=== PATIENT | female | born 1980 | race Caucasian/White ===

== ENCOUNTER 2018-07-23 23:06 | Emergency (ER) | payer SELFPAY ==
[~2018-07-23] VITALS: Ht 167.6 cm; Wt 59.5 kg
[2018-07-23] MEDS ORDERED: SOD CHLORIDE 0.9% 1,000 ML IV STA (23:10)
[2018-07-23 23:12] VITALS: Ht 167.6 cm; Wt 59.5 kg
--- NOTE | 2018-07-24 00:51 | ERD ---
ER Documentation Chief Complaint Chief Complaint bib ra s/p syncopal episode r/t finger lac [h/o pain induced syncope] HPI This a 29-year-old female brought in by rescue status post syncopal episode. Patient had a finger laceration earlier in the day she said it started hurting and the pain made her vasovagal. Apparently she had multiple episodes of vasovagal syncope in her past and this is a known issue for her. She is also 22 weeks . 5 para 1 with the current . Denies any chest pain nausea vomiting fevers chills or abdominal pain. Denies any other current issues. ROS All systems reviewed and are negative except as per history of present illness. Allergies Allergies: Coded Allergies: No Known Allergy (Unverified , 07/23/18) PMhx/Soc Medical and Surgical Hx: pt denies Medical Hx History of Surgery: Yes (, d/c) Anesthesia Reaction: No Hx Neurological Disorder: No Hx Respiratory Disorders: No Hx Cardiac Disorders: No Hx Psychiatric Problems: No Hx Miscellaneous Medical Probl: No Hx Alcohol Use: No Hx Substance Use: No Hx Tobacco Use: No Smoking Status: Never smoker Physical Exam Vitals Vital Signs Date Temp Pulse Resp B/P (MAP) Pulse Ox O2 O2 Flow FiO2 Time Delivery Rate 07/23/18 99.0 83 18 115/67 100 23:12 (83) Physical Exam Const: No acute distress Head: Atraumatic Eyes: Normal Conjunctiva ENT: Normal External Ears, Nose and Mouth. Neck: Full range of motion. No meningismus. Resp: Clear to auscultation bilaterally Cardio: Regular rate and rhythm, no murmurs Abd: Soft, non tender, non distended. Normal bowel sounds Skin: No petechiae or rashes Back: No midline or flank tenderness Ext: No cyanosis, or edema Neur: Awake and alert Psych: Normal Mood and Affect Result Diagram: 07/23/18 2335 07/23/18 2335 Results 24 hrs Laboratory Tests Test 07/23/18 23:35 White Blood Count 6.8 10^3/ul Red Blood Count 2.68 10^6/ul Hemoglobin 10.1 g/dl Hematocrit 26.9 % Mean Corpuscular Volume 100.4 fl Mean Corpuscular Hemoglobin 37.7 pg Mean Corpuscular Hemoglobin Concent 37.5 g/dl Red Cell Distribution Width 13.3 % Platelet Count 146 10^3/UL Mean Platelet Volume 9.4 fl Immature Granulocytes % 0.300 % Neutrophils % 62.8 % Lymphocytes % 29.6 % Monocytes % 6.0 % Eosinophils % 1.2 % Basophils % 0.1 % Nucleated Red Blood Cells % 0.0 /100WBC Immature Granulocytes # 0.020 10^3/ul Neutrophils # 4.3 10^3/ul Lymphocytes # 2.0 10^3/ul Monocytes # 0.4 10^3/ul Eosinophils # 0.1 10^3/ul Basophils # 0.0 10^3/ul Nucleated Red Blood Cells # 0.0 10^3/ul Urine Color YELLOW Urine Clarity CLEAR Urine pH 7.0 Urine Specific [place] 1.012 Urine Ketones NEGATIVE mg/dL Urine Nitrite NEGATIVE mg/dL Urine Bilirubin NEGATIVE mg/dL Urine Urobilinogen NEGATIVE mg/dL Urine Leukocyte Esterase NEGATIVE Andres/ul Urine Hemoglobin NEGATIVE mg/dL Urine Glucose NEGATIVE mg/dL Urine Total Protein NEGATIVE mg/dl Sodium Level 136 mmol/L Potassium Level 3.3 mmol/L Chloride Level 101 mmol/L Carbon Dioxide Level 25 mmol/L Anion Gap 10 Blood Urea Nitrogen 12 mg/dl Creatinine 0.85 mg/dl Est Glomerular Filtrat Rate mL/min > 60 mL/min Glucose Level 116 mg/dl Calcium Level 8.3 mg/dl Total Bilirubin 0.0 mg/dl Direct Bilirubin 0.00 mg/dl Indirect Bilirubin 0.0 mg/dl Aspartate Amino Transf (AST/SGOT) 21 IU/L Alanine Aminotransferase (ALT/SGPT) 22 IU/L Alkaline Phosphatase 59 IU/L Total Protein 5.7 g/dl Albumin 3.0 g/dl Globulin 2.70 g/dl Albumin/Globulin Ratio 1.11 Current Medications Medications Dose Sig/Jhoana Start Time Status Last (Trade) Ordered Route PRN Stop Time Admin Dose Reason Admin Sodium 1,000 ml @ Q1H STAT 07/23/18 DC 07/23/18 Chloride 1,000 mls/hr IV 23:10 23:31 07/24/18 00:10 Procedures/MDM Medical decision m[age]-year-old female with vasovagal syncopal episode. Ultrasound shows live IUP. Stable for outpatient management. Will be discharged upstairs to OB for biometric monitoring of fetus. Departure Diagnosis: Primary Impression: Syncope Syncope type: vasovagal syncope Qualified Codes: R55 - Syncope and collapse Condition: Stable REJI DESHPANDE Jul 24, 2018 00:51
[2018-07-24 01:29] VITALS: BP 106/60; PULSE 70; RESP 16
[2018-07-24] MEDS ORDERED: PREN1TAB13 PO (02:49)
[2018-07-24] MEDS ORDERED: ASPI-817 PO (02:49)
== END 2018-07-24 01:31 | disposition home or self-care (01) ==
LOC: E/R 23:06
DX: O99.89 Other specified diseases and conditions complicating pregnancy, childbirth and the puerperium (principal); R55 Syncope and collapse; Z3A.22 22 weeks gestation of pregnancy
CPT/HCPCS: 36415; 76805; 80053; 81003; 84702; 85025; 86900; 86901; 99285; J7030

== ENCOUNTER 2018-07-24 01:35 | Outpatient (CLI) | payer SELFPAY ==
[~2018-07-24] VITALS: Ht 170.2 cm; Wt 106.1 kg
[2018-07-24 02:46] VITALS: Ht 170.2 cm; Wt 106.1 kg
[2018-07-24 02:47] VITALS: BP 119/70; PULSE 96; RESP 18
[2018-07-24] MEDS ORDERED: ASPI-817 PO (02:49)
[2018-07-24] MEDS ORDERED: PREN1TAB13 PO (02:49)
--- NOTE | 2018-07-24 03:06 | PN ---
Triage Information Date/Time Jul 24, 2018 Reason for visit: Vasovagal syncopal episode with seizure activity Weeks of Gestation 21w 5d /Para 5/1 Diabetes: none Hypertention: none Additional information Pt cut her finger and then had a vasovagal syncopal episode with witnessed seizure activity with involuntary loss of urine. Pt has a h/o this type of thing under high stress situations. Pt had her finger attended to and wrapped and was cleared in the ER first. PMHx: Vasovagal episodes. PSHx: x 1. D and C. NKDA. Objective Vital Signs Date Temp Pulse Resp B/P (MAP) Pulse Ox O2 O2 Flow FiO2 Time Delivery Rate 07/24/18 98.6 96 18 119/70 Room Air 02:47 (86) Heart Rate: 140's Heart Rate Comments Accel to 160 bpm. No decels. Contractions: None Disposition: Discharge Assessment/Plan A: IUP at 21w 5d. Vasovagal episode with seizure activity. Finger trauma. P: D/C home. Pt had just seen her private OB doctor in [place] and is due to return there in 3 weeks. Reviewed signs of infection for her thumb care. SUDHAKAR MCKEON MD Jul 24, 2018 03:06
--- NOTE | 2018-07-24 04:36 | TRIAGE ---
OB Triage Datetime Report Generated by CPN: 07/24/2018 04:36 Datetime: 07/24/2018 02:54 Stage of : OB Triage Labor Evaluation Frequency: X0 Monitor Mode: External Duration (sec)2399: X0 Pattern: Normal: <= 5 Contractions in 10 Minutes Resting Tone Amo: Relaxed Heart Rate FHR Baseline Rate: 145 Monitor Mode: External US Variability: Moderate 6-25 bpm Accelerations: 10X10 Decelerations: None Category: Category I Datetime: 07/24/2018 02:10 Stage of : OB Triage Labor Evaluation Frequency: X0 Monitor Mode: External Duration (sec)2399: X0 Pattern: Normal: <= 5 Contractions in 10 Minutes Resting Tone Amo: Relaxed Heart Rate FHR Baseline Rate: 145 Monitor Mode: External US Variability: Moderate 6-25 bpm Accelerations: 15X15 Decelerations: None Category: Category I Datetime: 07/24/2018 01:56 EGA: 21.5 Datetime: 07/24/2018 01:45 Stage of : OB Triage Maternal Assessment Level of Consciousness: Fully Conscious DTR's/Clonus: DTRs 2+; No Clonus Headache: Denies Blurred Vision: No Respiratory Effort: Unlabored; Regular Rhythm; Equal Expansion Breath Sounds, Left: Clear and Equal Breath Sounds, Right: Clear and Equal Nausea/Vomiting: Denies RUQ Epigastric Pain: Denies Lower Extremities Edema: None Degree: None Upper Extremities Edema: None Degree: None Facial Edema: None Temperature Route: Oral Fall Risk Assessment History of Falling: (0) No Secondary Diagnosis: (0) No Ambulatory Aid: (0) Bedrest/Nurse Assist IV Therapy: (0) No Gait: (0) Normal/Bedrest/Immobile Mental Status: (0) Oriented to Own Ability Fall Score: 0 Fall Risk Score Definition: No Risk: No action required Pain Assessment Pain Scale: 2 Pain Presence: Constant Pain Type: Ache Pain Location: LEFT THUMB Datetime: 07/24/2018 01:30 Time of Arrival: 07/24/2018 01:27 Arrived By: Wheelchair Arrived From: Emergency Dept Chief Complaint: WELL BEING Movement: Present Contractions: Denies/Absent Rupture of Membranes: Denies Vaginal Bleeding: None Vaginal Discharge: Denies Recent Sexual Intercouse: Denies Abdominal Trauma: Not Applicable Patient Complaints: None Time Provider Notified: 07/24/2018 02:25 Provider Notified: DR MCKEON Initial Plan: EFM, CALL OB
== END 2018-07-24 03:04 | disposition home or self-care (01) ==
LOC: L-D 01:35 → OBT 01:35
PROVIDERS: ATTEND Obstetrics & Gynecology
DX: O26.892 Other specified pregnancy related conditions, second trimester (principal); R55 Syncope and collapse; O34.219 Maternal care for unspecified type scar from previous cesarean delivery; Z3A.21 21 weeks gestation of pregnancy
CPT/HCPCS: G0463